=== PATIENT | male | born 1960 | race Caucasian/White ===

== ENCOUNTER 2016-04-02 14:20 | Emergency (ER) | payer MEDICAID ==
[~2016-04-02] VITALS: Ht 175.3 cm; Wt 77.1 kg
[2016-04-02] MEDS ORDERED: ASPIRIN 325 MG TABLET ONE (14:52)
[2016-04-02] MEDS ORDERED: NITROGLYCERIN 0.4 MG/TAB BOTTLE ONE (14:53)
[2016-04-02] MEDS ORDERED: ONDANSETRON HCL/PF 4 MG/2 ML VIAL ONE (14:53)
[2016-04-02] MEDS ORDERED: MORPHINE SULFATE INJ 4 MG/ML DISP.SYRIN ONE (14:53)
[2016-04-02 14:59] LABS: BASOPHILS # (AUTO) 0.2 /CMM (0.0-0.2); BASOPHILS % (AUTO) 1.6 % (0.0-2.0); DIFF TOTAL % 100 %; EOSINOPHILS # (AUTO) 0.1 /CMM (0.0-0.7); EOSINOPHILS % (AUTO) 1.3 % (0.0-6.0); HEMATOCRIT 33 % (39-51); HEMOGLOBIN 11.5 g/dL (13.5-17.5); LYMPHOCYTES # (AUTO) 3.2 /CMM (0.8-4.8); LYMPHOCYTES % (AUTO) 33.2 % (20.0-44.0); MEAN CORPUSCULAR HEMOGLOBIN 32 PG (26.0-33.0); MEAN CORPUSCULAR HGB CONC 35 g/dl (31.0-36.0); MEAN CORPUSCULAR VOLUME 92 fL (80-96); MONOCYTES # (AUTO) 0.4 /CMM (0.1-1.30); MONOCYTES % (AUTO) 4.6 % (2.0-12.0); NEUTROPHILS # (AUTO) 5.6 /CMM (1.8-8.9); NEUTROPHILS % (AUTO) 59.3 % (43.0-81.0); PLATELET COUNT (AUTO) 296 /CMM (150-450); RED BLOOD CELL COUNT(AUTO) 3.63 MIL/uL (4.5-6.0); WHITE BLOOD COUNT (AUTO) 9.5 K/uL (4.3-11.0)
[2016-04-02] MEDS ORDERED: ONDANSETRON HCL/PF 4 MG/2 ML VIAL IVP ONE (15:00)
[2016-04-02] MEDS ORDERED: ASPIRIN 325 MG TABLET PO ONE (15:00)
[2016-04-02] MEDS ORDERED: NITROGLYCERIN 0.4 MG/TAB BOTTLE SL ONE (15:00)
[2016-04-02] MEDS ORDERED: MORPHINE SULFATE INJ 2 MG/ML DISP.SYRIN IV ONE (15:00)
[2016-04-02 15:23] LABS: ANION GAP 11 (5-14); CALCIUM, SERUM 8.8 mg/dL (8.5-10.1); CARBON DIOXIDE 30 mmol/L (21-32); CHLORIDE 102 mmol/L (98-107); CREATININE 1.4 mg/dL (0.6-1.3); GFR 52 mL/min (>60); SODIUM SERUM 139 mmol/L (136-145); UREA NITROGEN, BLOOD 18 mg/dL (7-18)
[2016-04-02 15:24] LABS: INR 0.94 (0.87-1.13); PROTHROMBIN TIME 9.9 SECS (9.5-12.7)
[2016-04-02 15:28] LABS: TROPONIN I < 0.017 ng/mL (0.00-0.056)
[2016-04-02 15:30] LABS: GLUCOSE 354 mg/dL (74-106)
[2016-04-02] MEDS ORDERED: SIMV10TA6 PO (15:42)
[2016-04-02] MEDS ORDERED: SITA1TAB6 PO (15:42)
[2016-04-02] MEDS ORDERED: CANA300T PO (15:42)
[2016-04-02] MEDS ORDERED: FERR-58 PO (15:42)
[2016-04-02 16:22] VITALS: BP 147/73
== END 2016-04-02 16:25 | disposition left against medical advice (07) ==
LOC: ER 14:22
DX: R07.89 Other chest pain (principal); E11.65 Type 2 diabetes mellitus with hyperglycemia; I10 Essential (primary) hypertension; E78.00 Pure hypercholesterolemia, unspecified; E78.5 Hyperlipidemia, unspecified; F17.200 Nicotine dependence, unspecified, uncomplicated
CPT/HCPCS: 36415; 71010; 80048; 83735; 84484; 85025; 85730; 93005; 99285; A4606; Z7610; J2270; J2405